=== PATIENT | male | born 1975 | race Caucasian/White ===

== ENCOUNTER 2017-02-22 15:01 | Emergency (ER) | payer SELFPAY ==
--- NOTE | 2017-02-22 15:34 | UC ---
Skin Complaint HPI - HPI Summary HPI Summary: 41 YEAR OLD MALE PRESENTS WITH INSECT BITES ON HIS KNEES. - History of Current Complaint Time Seen by Provider: 02/22/17 15:33 Stated Complaint: RASH - Allergy/Home Medications Allergies/Adverse Reactions: Allergies Allergy/AdvReac Type Severity Reaction Status Date / Time Codeine Allergy Palpitation Verified 02/22/17 15:47 s Review of Systems Constitutional: Negative Skin: Rash, Other - INSECT BITE BILATERAL KNEES Eyes: Negative ENT: Negative Respiratory: Negative Cardiovascular: Negative Gastrointestinal: Negative Genitourinary: Negative Motor: Negative Neurovascular: Negative Musculoskeletal: Negative Neurological: Negative Psychological: Negative All Other Systems Reviewed And Are Negative: Yes PMH/Surg Hx/FS Hx/Imm Hx - Surgical History Surgical History: Yes Surgery Procedure, Year, and Place: Cholecystectomy, 2010, [facility] - Social History Alcohol Use: "every other weekend ... two [drinks]" Substance Use Type: None Smoking Status (MU): Light Every Day Tobacco Smoker Type: Cigarettes Amount Used/How Often: 1/5 PPD Length of Time of Smoking/Using Tobacco: 21 Years Have You Smoked in the Last Year: Yes - Immunization History Most Recent Influenza Vaccination: Not the Season Physical Exam Triage Information Reviewed: Yes Eye Exam: Normal ENT Exam: Normal Dental Exam: Normal Neck exam: Normal Neck: Positive: 1 Respiratory Exam: Normal Cardiovascular Exam: Normal Abdominal Exam: Normal Musculoskeletal Exam: Normal Neurological Exam: Normal Psychological Exam: Normal Skin: Positive: Other - BILATERAL KNEE INSECT BITE Course/Dx - Diagnoses Provider Diagnoses: INSECT BITE ON BOTH KNEES Discharge - Discharge Plan Condition: Stable Disposition: HOME Prescriptions: Mupirocin 2% OINT* [Bactroban 2 % Oint*] 1 applic TOPICAL BID #1 tube Sulfamethox/Trimethoprim DS* [Bactrim DS 800/160 TAB*] 1 tab PO BID #20 tab Triamcinolone 0.1% CREAM(NF) [Kenalog Cream 0.1%(NF)] 1 applic TOPICAL BID #90 gm predniSONE TAB* [Deltasone TAB*] 40 mg PO DAILY #10 tab Patient Education Materials: Insect Bite or Sting (ED), Acute Rash (ED) Referrals: Felipe Nichols MD [Medical Doctor] -
[2017-02-22 15:47] VITALS: BP 112/68
[2017-02-22] MEDS ORDERED: predniSONE TAB* 20 MG PO ONE (15:56)
== END 2017-02-22 16:16 | disposition home or self-care (01) ==
LOC: UCCORT 15:01
DX: S80.262A Insect bite (nonvenomous), left knee, initial encounter (principal); S80.261A Insect bite (nonvenomous), right knee, initial encounter; W57.XXXA Bitten or stung by nonvenomous insect and other nonvenomous arthropods, initial encounter; F17.210 Nicotine dependence, cigarettes, uncomplicated; Z88.5 Allergy status to narcotic agent
CPT/HCPCS: 99212; G0463; J7512